=== PATIENT | female | born 1940 | race Caucasian/White ===

== ENCOUNTER 2018-07-13 11:17 | Emergency (ER) | payer MEDICARE ==
[2018-07-13] MEDS ORDERED: predniSONE 20 MG TABLET PO STA (12:49)
[2018-07-13] MEDS ORDERED: EPINEPHrine 1 MG/ML AMP IM STA (12:49)
[2018-07-13] MEDS ORDERED: diphenhydrAMINE 25 MG CAPSULE PO STA (12:49)
--- NOTE | 2018-07-13 12:54 | ED Physician Documentation ---
History of Present Illness - Stated complaint Stated Complaint: RASH - Chief complaint Chief Complaint: Allergic Rx - History obtained from History obtained from: Patient, Family - History of Present Illness Timing: Today Pain level max: 0 Pain level now: 0 Improved by: nothing Worsened by: nothing - Additonal information Additional information: 77-year-old female states that she took her usual morning medications today and broke out in a rash from head to toe. She is visiting from out of town. There are sleeping a new sheets that are washed with a different detergent than at home. She has never had allergic reactions like this before. No changes in her medications. Did not take anything for this. Nothing makes it better or worse. Did not have any new foods. Review of Systems Ten Systems: 10 systems reviewed and negative Constitutional: denies: Fever, Chills Ears: denies: Ear pain Nose: denies: Rhinorrhea / runny nose, Congestion Throat: denies: Sore throat Cardiac: denies: Chest pain / pressure Respiratory: denies: Dyspnea, Cough, Wheezing GI: denies: Abdominal Pain, Vomiting, Diarrhea Musculoskeletal: denies: Neck pain, Back pain PD PAST MEDICAL HISTORY - Past Medical History Cardiovascular: Hypertension, High cholesterol Respiratory: Asthma Endocrine/Autoimmune: Other GI: GERD Musculoskeletal: Rheumatoid arthritis - Past Surgical History Ortho: Hip replacement, Knee replacement - Present Medications Home Medications: Ambulatory Orders Medication Instructions Recorded Confirmed Methotrexate Sodium/Pf 25 mg SQ OAW #1 vial 07/13/18 [Methotrexate 50 mg/2 ml Vial] predniSONE [Prednisone] 40 mg PO DAILY #8 tablet 07/13/18 - Allergies Allergies/Adverse Reactions: Allergies Allergy/AdvReac Type Severity Reaction Status Date / Time No Known Drug Allergies Allergy Verified 07/13/18 11:24 - Social History Does the pt smoke?: No Smoking Status: Never smoker Does the pt drink ETOH?: No Does the pt have substance abuse?: No PD ED PE NORMAL - Vitals Vital signs reviewed: Yes - General General: Alert and oriented X 3, No acute distress, Well developed/nourished - HEENT HEENT: PERRL, Ears normal, Moist mucous membranes, Pharynx benign - Neck Neck: Supple, no meningeal sign - Cardiac Cardiac: RRR, Strong equal pulses - Respiratory Respiratory: No respiratory distress, Clear bilaterally - Abdomen Abdomen: Soft, Non tender, Non distended - Derm Derm: Warm and dry, Other (Diffuse head to toe erythema, blanches easily.) - Extremities Extremities: No edema - Neuro Neuro: Alert and oriented X 3 - Psych Psych: Normal mood, Normal affect Results - Vitals Vitals: Vital Signs - 24 hr 07/13/18 07/13/18 11:21 13:05 Temperature 36.0 C L Heart Rate 88 88 Respiratory 14 14 Rate Blood Pressure 136/85 H 130/86 H O2 Saturation 100 100 Oxygen O2 Source Room air PD MEDICAL DECISION MAKING - ED course Complexity details: re-evaluated patient, considered differential, d/w patient, d/w family ED course: 77-year-old female with an allergic reaction of unclear etiology. It is very pruritic and erythematous. Given a dose of epinephrine and feels much better. Will place on steroids and Benadryl for home. She is well-appearing, nontoxic. Afebrile. No hypoxia or respiratory distress. Patient counseled regarding signs and symptoms for which I believe and urgent re-evaluation would be necessary. Patient with good understanding of and agreement to plan and is comfortable going home at this time This document was made in part using voice recognition software. While efforts are made to proofread this document, sound alike and grammatical errors may occur. She is also requesting a refill of her methotrexate for her chronic arthritis Departure - Departure Disposition: 01 Home, Self Care Clinical Impression: Allergic urticaria Condition: Good Instructions: ED Allergic Reaction General Other Follow-Up: Provider,Other [Physician No Access] - Within 1 week Prescriptions: Methotrexate Sodium/Pf [Methotrexate 50 mg/2 ml Vial] 25 mg SQ OAW #1 vial predniSONE [Prednisone] 40 mg PO DAILY #8 tablet Comments: You can also use Benadryl at home to help with this. Return if you worsen. Follow-up with your doctor for further care. Discharge Date/Time: 07/13/18 13:04
[2018-07-13 13:07] VITALS: BP 130/86
== END 2018-07-13 13:04 | disposition home or self-care (01) ==
LOC: ED 11:17
DX: L50.0 Allergic urticaria (principal); L29.9 Pruritus, unspecified; I10 Essential (primary) hypertension; E78.00 Pure hypercholesterolemia, unspecified; Z96.659 Presence of unspecified artificial knee joint; Z96.649 Presence of unspecified artificial hip joint
CPT/HCPCS: 96372; 99283; A9270; J7512